=== PATIENT | male | born 1950 | race Caucasian/White ===

== ENCOUNTER 2023-11-10 11:00 | Emergency (ER) | payer OTHER, BC ==
[~2023-11-10] VITALS: Ht 182.9 cm; Wt 85.4 kg
[2023-11-10 11:01] VITALS: BP 139/91; PULSE 111; RESP 16; TEMP 97.3; O2SAT 98
--- NOTE | 2023-11-10 11:12 | NUR ---
Patient being evaluated by physician at bedside.
--- NOTE | 2023-11-10 11:14 | NUR ---
73M WITH NO PMHX. PRESENTED TO ED AMBULATORY. PT STATED HE THOUGHT THAT HE CAUGHT HIS SKIN WITH HIS WATCH AND WHEN HE LOOKED HE SAW A BITE PHIL ON HIS LEFT FOREARM. HE DIDN'T ACTUALLY WHAT INSECT COULD HAVE BIT HIM. SEARCHED THE INTERNET FOR BLACK BITE AND FOLLOWED THE SUGGESTION TO BE SEEN WITHIN THE HOUR. PT DENIES CHEST PAIN, SOB, CHILLS, FEVER, NAUSEA OR VOMITING. SATURATING WELL. NORMOTENSIVE. BITE PHIL SEEN WITHOUT ERYTHEMA OR WARMTH. NO NUMBNESS OR TINGLING. SEEN BY ED MD BENNETT. PT TO BE D/C'D HOME WITH ANTI-HISTAMINE AND INUPROFEN FOR PAIN AND ADVISED TO CONTINUE TO MONITOR SITE AND SYMPTOMS.
[2023-11-10] MEDS ORDERED: IBUP-2213 PO (11:22)
[2023-11-10] MEDS ORDERED: DIPH25TA53 PO (11:22)
--- NOTE | 2023-11-10 11:37 | NUR ---
Patient discharged with v/s stable. Written and verbal after care instructions given and explained. Patient alert, oriented and verbalized understanding of instructions. Ambulatory with steady gait. All questions addressed prior to discharge. ID band removed. Patient advised to follow up with PMD. Rx SENT TO PHARMACY. Patient educated on indication of medication including possible reaction and side effects. Opportunity to ask questions provided and answered.
== END 2023-11-10 11:37 | disposition home or self-care (01) ==
LOC: MED 11:00
DX: S50.862A Insect bite (nonvenomous) of left forearm, initial encounter (principal); W57.XXXA Bitten or stung by nonvenomous insect and other nonvenomous arthropods, initial encounter; Y92.89 Other specified places as the place of occurrence of the external cause; Y93.89 Activity, other specified; Y99.8 Other external cause status
CPT/HCPCS: 99282